=== PATIENT | female | born 1935 | race Caucasian/White ===

== ENCOUNTER 2018-06-04 09:28 | Day surgery (SDC) | payer MEDICARE, OTHER ==
[~2018-06-04] VITALS: Ht 170.2 cm; Wt 90.9 kg
[2018-06-04 09:55] LABS: BASOPHILS 0.8 % (0-2); EOSINOPHILS 3.1 % (0-7); HEMATOCRIT 40.3 % (36.0-48.0); HEMOGLOBIN 13.2 g/dL (12-16); MCH 30.2 pg (26.0-34.0); MCHC 32.8 g/dL (31.0-37.0); MCV 92.2 fL (80.0-100.0); MEAN PLATELET VOLUME 9.7 fL (7.4-10.4); MONOCYTES 8.2 % (2-11); NEUTROPHILS 58.9 % (40-80); PLATELET COUNT 185 10x3/uL (130-400); RBC 4.37 10x6/uL (4.00-5.40); WBC 6.4 10x3/uL (4.8-10.8)
[2018-06-04 10:15] LABS: ANION GAP 13.4 mmol/L (8-16); CALCIUM 8.6 mg/dL (8.5-10.1); CARBON DIOXIDE 28.3 mmol/L (21.0-32.0); CREATININE - SERUM 0.9 mg/dL (0.6-1.3); POTASSIUM - SERUM 3.7 mmol/L (3.5-5.1)
[2018-06-04] MEDS ORDERED: ZESTRIL40 MG (10:47)
[2018-06-04] MEDS ORDERED: CALAN SR240 MG PO (10:47)
[2018-06-04] MEDS ORDERED: GLUCOTROL 5 MG T5 MG PO (10:48)
[2018-06-04] MEDS ORDERED: CRESTOR10 MG PO (10:48)
[2018-06-04] MEDS ORDERED: GLUCOPHAGE1000 MG PO (10:49)
[2018-06-04] MEDS ORDERED: ALEVE220 MG PO (10:49)
[2018-06-04 10:54] VITALS: BP 128/66; Ht 170.2 cm; Wt 90.9 kg
--- NOTE | 2018-06-04 13:26 | NUR ---
DC INSTRUCTIONS GIVEN TO PT/FAMILY. STATE UNDERSTANDING. DC'D IV CATH FULLY INTACT.
--- NOTE | 2018-06-04 13:33 | NUR ---
PT LEFT UNIT VIA WC AT 1332
--- NOTE | 2018-06-09 10:43 | OP ---
PATIENT NAME: OFELIA CEVALOLS MEDICAL RECORD: [id number] [facility] AD[facility] DATE: SURGEON: HALLE OCONNOR DO DATE OF OPERATION: 06/04/2018 PROCEDURE: EGD with biopsies. INDICATIONS FOR PROCEDURE: Dysphagia, heartburn, hoarseness. SCOPE: Olympus video gastroscope. MEDICATIONS: Propofol 100 mg IV per anesthesia. ESTIMATED BLOOD LOSS: Minimal. COMPLICATIONS: None. FINDINGS: Informed consent was given. The patient was made comfortable with the above medication. After reaching an adequate level of sedation by slow IV push, the patient was placed in the left side. The endoscope was advanced under direct visualization through the mouth to the second portion of the duodenum. The esophagus appeared normal in its entirety. There were no strictures, rings, or webs visualized within the esophagus. At the GE junction, there was mild evidence of LA class A reflux-induced esophagitis. The endoscope was advanced beyond the GE junction into the stomach and retroflexed to view the cardia, where a small sliding hiatal hernia was present along with a widely patent GE junction. In the fundus and in proximal body of the stomach, there was diffuse congestion and erythema of the stomach. The distal body, antrum, and prepyloric regions appeared relatively normal. Random cold forceps biopsies were taken to submit for histopathology and to rule out the presence of H. pylori. The endoscope was advanced into the duodenum. The duodenum appeared normal down to the second portion. The endoscope was then withdrawn from the patient. The patient tolerated the procedure well and there were no complications. IMPRESSION: 1. Normal esophagus without strictures, rings, or webs. 2. LA class A reflux-induced esophagitis. 3. Small sliding hiatal hernia and a widely patent GE junction, which could explain heartburn, reflux. 4. Gastritis characterized by erythema and congestion. PLAN AND RECOMMENDATIONS: 1. Discharge home when recovery parameters are met. 2. Follow up biopsy specimen results. 3. GERD diet and reflux precautions. 4. Continue current medications. 5. Add a PPI 40 mg equivalent daily to regimen to see if this helps symptoms of heartburn, dysphagia, and hoarseness. 6. We will order a modified barium swallow to evaluate for dysphagia and possible aspiration. If this is normal, consideration can be given to esophageal manometry and pH study with an LPRD probe to rule out reflux that is contributing to hoarseness. TRANSINT:[id number] Voice Confirmation ID: [id number] DOCUMENT ID: [id number] OPERATIVE REPORT [id number] OFELIA CEVALLOS,HALLE Rodriguez DO at 1043 CC: [id number] DICTATION DATE: 06/04/18 1222 ARCHITECTURAL DESIGNER: 06/04/18 1510 [facility] 06/04/18 [place] [id number] [place] [id number]
== END 2018-06-04 13:32 | disposition home or self-care (01) ==
LOC: D.OPS 09:28
PROVIDERS: Anesthesiology
DX: K21.0 Gastro-esophageal reflux disease with esophagitis (principal); K44.9 Diaphragmatic hernia without obstruction or gangrene; K29.50 Unspecified chronic gastritis without bleeding; Z01.812 Encounter for preprocedural laboratory examination

== ENCOUNTER → 2018-06-11 12:29 | Outpatient (CLI) | payer MEDICARE, OTHER ==
[2018-06-04 10:54] VITALS: BMI 31.4
[~2018-06-11 12:29] MED LIST: ALEVE220 MG PO; CALAN SR240 MG PO; CRESTOR10 MG PO; GLUCOPHAGE1000 MG PO; GLUCOTROL 5 MG T5 MG PO; ZESTRIL40 MG
== END | disposition home or self-care (01) ==
LOC: D.RAD 12:29
DX: R13.10 Dysphagia, unspecified (principal)

== ENCOUNTER → 2018-06-19 08:33 | Outpatient (CLI) | payer MEDICARE, OTHER ==
[2018-06-04 10:54] VITALS: BMI 31.4
== END | disposition home or self-care (01) ==
LOC: D.RAD 08:33
DX: R93.89 Abnormal findings on diagnostic imaging of other specified body structures (principal)